=== PATIENT | female | born 1965 | race Caucasian/White ===

== ENCOUNTER 2019-07-05 20:31 | Emergency (ER) | payer BC ==
[2019-07-05 20:44] VITALS: BP 155/89
[2019-07-05] MEDS ORDERED: Amoxicillin/Clavulanate TAB* 875 MG PO ONE (21:27)
--- NOTE | 2019-07-05 21:32 | UC ---
Throat Pain/Nasal Lennox HPI - HPI Summary HPI Summary: 53-year-old female presents with one-week history of nasal congestion, sinus pressure, and sore throat. States over the past 2 nights she has been getting intermittent sharp left ear pain. No measured fever however has felt chilled. States she's had a couple brief episodes of vertigo. Patient reports that approximately 8 or 9 days ago she was seen by her primary care provider for bilateral conjunctivitis and started on Cortisporin eye ointment which cleared the symptoms. Denies ear drainage, dysphagia, cough, chest pain, shortness of breath, abdominal pain, nausea, or vomiting. - History of Current Complaint Chief Complaint: UCEar Stated Complaint: EARACHE Time Seen by Provider: 07/05/19 20:48 Hx Obtained From: Patient Pain Intensity: 7 - Allergies/Home Medications Allergies/Adverse Reactions: Allergies Allergy/AdvReac Type Severity Reaction Status Date / Time No Known Allergies Allergy Verified 07/05/19 20:35 PMH/Surg Hx/FS Hx/Imm Hx Endocrine History: Thyroid Disease Cardiovascular History: Hypertension - Surgical History Surgical History: Yes Surgery Procedure, Year, and Place: [id number] – [place]. TUBAL LIGATION-1995, abd hysterectomy 05/2014 - Family History Known Family History: Positive: Non-Contributory - Social History Occupation: Employed Full-time Lives: With Family Alcohol Use: None Substance Use Type: None Smoking Status (MU): Never Smoked Tobacco - Immunization History Most Recent Influenza Vaccination: NONE Most Recent Tetanus Shot: UNSURE Most Recent Pneumonia Vaccination: NONE Review of Systems All Other Systems Reviewed And Are Negative: Yes Constitutional: Negative: Fever, Chills Eyes: Negative: Drainage, Eye Redness ENT: Positive: Sore Throat, Ear Ache, Nasal Discharge, Sinus Congestion, Sinus Pain/Tenderness Respiratory: Negative: Shortness Of Breath, Cough Cardiovascular: Negative: Palpitations, Chest Pain Gastrointestinal: Negative: Abdominal Pain, Vomiting, Diarrhea, Nausea Genitourinary: Positive: Negative Musculoskeletal: Positive: Negative Neurological/Mental Status: Positive: Negative Is Patient Immunocompromised?: No Physical Exam - Summary Physical Exam Summary: GENERAL APPEARANCE: Alert and cooperative adult female who appears to be in no acute distress. EYES: Conjunctiva clear. No drainage. EARS: Right external auditory canal and tympanic membranes clear. Left external auditory canal with large amount of cerumen and TM was poorly visualized however did appear erythematous. Hearing grossly intact. NOSE: Moderate nasal congestion. No nasal discharge. Maxillary sinus tenderness. THROAT: Pharynx normal. No tonsilar inflammation, swelling, exudate, or lesions. Uvula midline. NECK: Neck supple, non-tender without lymphadenopathy. CARDIAC: Normal S1 and S2. No S3, S4 or murmurs. Rhythm is regular. There is no peripheral edema, cyanosis or pallor. Extremities are warm and well perfused. Capillary refill is less than 2 seconds. Peripheral pulses intact. LUNGS: Clear to auscultation without rales, rhonchi, wheezing or diminished breath sounds. ABDOMEN: Positive bowel sounds. Soft, nondistended, nontender. No guarding or rebound. No masses or hepatosplenomegally. MUSKULOSKELETAL: ROM intact to all extremities. No joint erythema or tenderness. Normal muscular development. Normal gait. SKIN: Skin normal color, texture and turgor with no lesions or eruptions. Triage Information Reviewed: Yes Vital Signs: Initial Vital Signs Temp 96.6 F 07/05/19 20:39 Pulse 72 07/05/19 20:39 Resp 20 07/05/19 20:39 BP 155/89 07/05/19 20:39 Pulse Ox 99 07/05/19 20:39 Vital Signs Reviewed: Yes Throat Pain/Nasal Course/Dx - Course Course Of Treatment: 53-year-old female presents with one-week history of nasal congestion, sinus pressure, and sore throat. States over the past 2 nights she has been getting intermittent sharp left ear pain. No measured fever however has felt chilled. States she's had a couple brief episodes of vertigo. Patient reports that approximately 8 or 9 days ago she was seen by her primary care provider for bilateral conjunctivitis and started on Cortisporin eye ointment which cleared the symptoms. Denies ear drainage, dysphagia, cough, chest pain, shortness of breath, abdominal pain, nausea, or vomiting. Afebrile. Hypertensive otherwise vital signs stable. On exam patient was noted to have a clear right external auditory canal and tympanic membrane, the left external auditory canal had a large amount of cerumen and the TM was poorly visualized however did appear erythematous, moderate nasal congestion, maxillary sinus tenderness, and otherwise unremarkable exam. Discussed with the patient that her symptoms were consistent with an acute sinus infection and likely had a left otitis media as well although could not confirm because the TM was poorly visualized. We'll treat her with a course of Augmentin 875 mg twice a day 10 days as well as recommend symptomatic treatment for the sinus infection. She was given the first dose of antibiotic in the clinic. She is to follow-up with her primary care provider in 3-5 days if symptoms are not improving. Anticipatory guidance and warning symptoms are reviewed with the patient. Verbalizes understanding and agrees with plan of care. - Differential Dx/Diagnosis Differential Diagnosis/HQI/PQRI: Otitis Media, Sinusitis, URI Provider Diagnosis: Acute sinusitis Discharge ED - Sign-Out/Discharge Documenting (check all that apply): Patient Departure All imaging exams completed and their final reports reviewed: No Studies - Discharge Plan Condition: Stable Disposition: HOME Prescriptions: Amoxicillin/Clavulanate TAB* [Augmentin TAB 875*] 875 mg PO BID #20 tab Patient Education Materials: Sinusitis (ED), Earache (ED) Referrals: Melissa Ruby [Primary Care Provider] - 3 Days (If no improvement in symptoms.) Additional Instructions: Your history and exam are consistent with a sinus infection with possible left ear infection. I was not able to fully visualize the left ear drum due to an abundance of ear wax in the ear canal however we will treat you with an antibiotic that should treat for any ear infection as well. Start Augmentin 875 mg 1 tab twice a day for 10 days. Take with food to avoid upset stomach. Be sure to take the entire course even if feeling better. In the first dose of this antibiotic in the clinic Use a saline rinse kit such as Neti Pot or NeilMed at least twice a day to help thin secretions and promote drainage of the sinuses. Use [id number] fluticasone (Flonase) nasal spray 2 sprays each nostril once daily. Take over the counter acetaminophen (Tylenol) or ibuprofen (Advil, Motrin) according to directions as needed for pain or fever. Follow up with your primary care provider in 3-5 days if symptoms persist. Seek immediate medical attention in the emergency room if you have fever greater than 100.5 F despite taking acetaminophen or ibuprofen, have chest pain , difficulty breathing, are unable to swallow, or have any worsening of symptoms. - Billing Disposition and Condition Condition: STABLE Disposition: Home
== END 2019-07-05 21:42 | disposition home or self-care (01) ==
LOC: UCEAST 20:31
DX: J01.90 Acute sinusitis, unspecified (principal); J02.9 Acute pharyngitis, unspecified; H92.02 Otalgia, left ear; I10 Essential (primary) hypertension
CPT/HCPCS: 99212; A9270-GY; G0463

== ENCOUNTER 2019-11-23 11:43 | Inpatient (IN) ==
[2019-11-23] MEDS ORDERED: cefTRIAXone 1 gm/50 mL NS BAG 1 GM/50 ML BAG IV ONE (11:53)
[2019-11-23] MEDS ORDERED: NS 0.9% IV ONE (11:53)
[2019-11-23 12:30] LABS: ABS Lymphocytes 0.4 10^3/ul (1.0-4.8); ABS Monocytes 0.7 10^3/ul (0-0.8); Hematocrit 33 % (35-47); Hemoglobin 11.4 g/dL (12.0-16.0); Lymphocyte % 3.9 %; Mean Corpuscular HGB Conc 35 g/dL (31-36); Mean Corpuscular Hemoglobin 29 pg (27-31); Mean Corpuscular Volume 83 fL (80-97); Platelet Count 161 10^3/uL (150-450); Red Blood Count 3.97 10^6 /uL (3.70-4.87); Red Cell Distribution Width 13 % (10-15); White Blood Count 10.2 10^3/uL (3.5-10.8)
[2019-11-23 12:40] LABS: Activated Partial Thrombo Time 26.4 seconds (26.0-38.0); INR 1.23 (0.82-1.09)
[2019-11-23] MEDS ORDERED: Ondansetron 4 mg VIAL 2 MG/ML 2 ml VIAL IV ONE (12:45)
[2019-11-23] MEDS ORDERED: Azithromycin 500 mg/250 ml NS 500 MG/250 ML BAG IVPB ONE (12:46)
[2019-11-23 12:47] LABS: Albumin 3.9 g/dL (3.2-5.2); Albumin/Globulin Ratio 1.3 (1-3); BUN/Creatinine Ratio 11.9 (8-20); Calcium 9.3 mg/dL (8.6-10.3); EGFR African American 110.6 (>60); EGFR Non-African American 91.4 (>60); Globulin 3.1 g/dL (2-4); Total Bilirubin 1.1 mg/dL (0.2-1.0); Troponin I 0.02 ng/mL (<0.03)
[2019-11-23] MEDS: KCL 20 MEQ/100 ML IVPREMIX 20 MEQ/100 ML BAG IV SCH ×2 (15:33→18:18)
[2019-11-23 18:27] LABS: TSH (Thyroid Stimulating Horm) 0.47 mcIU/mL (0.34-5.60)
[2019-11-23] MEDS: Ondansetron 4 mg VIAL 2 MG/ML 2 ml VIAL IV PRN (19:20)
[2019-11-23] MEDS: NS 0.9% 1000 ml BAG 1,000 ML IV SCH (21:16)
[2019-11-23] MEDS ORDERED: Prochlorperazine 5 mg/ml 2 ml VIAL (10 mg) IV ONE (23:34)
[2019-11-24] MEDS: Ondansetron 4 mg VIAL 2 MG/ML 2 ml VIAL IV PRN ×3 (07:48→22:24)
[2019-11-24] MEDS: NS 0.9% 1000 ml BAG 1,000 ML IV SCH (07:52)
[2019-11-24 08:39] LABS: Urine Appearance Cloudy; Urine Bacteria Absent (Absent); Urine Bilirubin Negative (Negative); Urine Blood 2+ (Negative); Urine Color Amber; Urine Glucose 1+(50 mg/dL) (Negative); Urine Ketones Trace (Negative); Urine Nitrite Negative (Negative); Urine Protein 2+(100 mg/dL) (Negative); Urine Red Blood Cell 3+(>10/hpf) (Absent); Urine Specific Gravity 1.026 (1.010-1.030); Urine Squamous Epithelial Cell Present (Absent); Urine Urobilinogen Negative (Negative); Urine White Blood Cell 3+(>20/hpf) (Absent)
[2019-11-24] MEDS ORDERED: METOPROLOL TARTRATE 50 MG PO SCH (09:00)
[2019-11-24] MEDS ORDERED: cefTRIAXone 1 gm/50 mL NS BAG 1 GM/50 ML BAG IVPB SCH (09:00)
[2019-11-24 09:56] LABS: ABS Lymphocytes 0.6 10^3/ul (1.0-4.8); ABS Monocytes 0.8 10^3/ul (0-0.8); Hematocrit 27 % (35-47); Hemoglobin 9.3 g/dL (12.0-16.0); Lymphocyte % 6.6 %; Mean Corpuscular HGB Conc 35 g/dL (31-36); Mean Corpuscular Hemoglobin 29 pg (27-31); Mean Corpuscular Volume 84 fL (80-97); Mean Platelet Volume 8.9 fL (7.4-10.4); Platelet Count 121 10^3/uL (150-450); Red Cell Distribution Width 14 % (10-15); White Blood Count 8.6 10^3/uL (3.5-10.8)
[2019-11-24 10:17] LABS: BUN/Creatinine Ratio 15.3 (8-20); C Reactive Protein 200.11 mg/L (<8.01); Calcium 8.1 mg/dL (8.6-10.3); EGFR Non-African American 105.8 (>60); Potassium 3.4 mmol/L (3.5-5.0)
[2019-11-24] MEDS ORDERED: KCL 20 MEQ/100 ML IVPREMIX 20 MEQ/100 ML BAG IV ONE (16:12)
[2019-11-24] MEDS ORDERED: Dextrose 50% Syringe 50 ml 25 GM/50 ML SYRINGE IV PUSH PRN (16:38)
[2019-11-24 17:11] LABS: Magnesium 1.7 mg/dL (1.9-2.7)
[2019-11-24] MEDS: Insulin LISPRO 100 units/ml(*) SUBCUT SCH ×2 (17:46→22:30)
[2019-11-24] MEDS ORDERED: Ondansetron 4 mg VIAL 2 MG/ML 2 ml VIAL IV PRN (18:47)
[2019-11-24] MEDS ORDERED: Insulin LISPRO 100 units/ml(*) SUBCUT SCH (21:00)
[2019-11-25] MEDS: NS 0.9% 1000 ml BAG 1,000 ML IV SCH (06:29)
[2019-11-25 06:47] LABS: ABS Monocytes 0.8 10^3/ul (0-0.8); Eosinophil % 0.5 %; Hematocrit 26 % (35-47); Hemoglobin 9.3 g/dL (12.0-16.0); Lymphocyte % 11.5 %; Mean Corpuscular HGB Conc 35 g/dL (31-36); Mean Corpuscular Hemoglobin 30 pg (27-31); Mean Corpuscular Volume 84 fL (80-97); Mean Platelet Volume 10.2 fL (7.4-10.4); Nucleated Red Blood Cells % 0.1; Platelet Count 122 10^3/uL (150-450); Red Blood Count 3.13 10^6 /uL (3.70-4.87); Red Cell Distribution Width 14 % (10-15); White Blood Count 8.6 10^3/uL (3.5-10.8)
[2019-11-25 07:25] LABS: Anion Gap 7 mmol/L (2-11); Blood Urea Nitrogen 10 mg/dL (6-24); C Reactive Protein 166.99 mg/L (<8.01); CO2 Carbon Dioxide 24 mmol/L (22-32); Calcium 8.5 mg/dL (8.6-10.3); Chloride 106 mmol/L (101-111); EGFR Non-African American 128.1 (>60); Glucose 130 mg/dL (70-100); Potassium 3.7 mmol/L (3.5-5.0); Sodium 137 mmol/L (135-145)
[2019-11-25 08:07] LABS: Magnesium 1.8 mg/dL (1.9-2.7)
[2019-11-25] MEDS ORDERED: Magnesium Sulfate 2 gm BAG 2 GM/50 ML BAG IVPB ONE (08:46)
[2019-11-25] MEDS: Insulin LISPRO 100 units/ml(*) SUBCUT SCH ×4 (09:30→22:05)
[2019-11-25] MEDS ORDERED: cefTRIAXone(*) 2 GM ADDV.VIAL 2 GM in NS 0.9% 100 ml BAG 100 ML IV SCH (10:00)
[2019-11-25 12:28] LABS: Ferritin 438.3 ng/mL (11-307)
[2019-11-25 12:30] LABS: Thyroid Peroxidase Antibodies 1.24 IU/mL (<9)
[2019-11-25 12:43] LABS: Thyroglobulin Antibody II 7.5 IU/mL (<4.0)
[2019-11-25 13:21] LABS: % Iron Saturation 14 % (15-55); Iron 32 ug/dL (50-212); Total Iron Binding Capacity 227 mcg/dL (250-450); Transferrin 162 mg/dL (203-362)
[2019-11-26 07:07] LABS: ABS Eosinophils 0.1 10^3/ul (0-0.6); ABS Lymphocytes 1.2 10^3/ul (1.0-4.8); ABS Monocytes 0.6 10^3/ul (0-0.8); Eosinophil % 2.1 %; Hematocrit 26 % (35-47); Hemoglobin 9.1 g/dL (12.0-16.0); Lymphocyte % 20.5 %; Mean Corpuscular HGB Conc 35 g/dL (31-36); Mean Corpuscular Hemoglobin 29 pg (27-31); Mean Corpuscular Volume 83 fL (80-97); Mean Platelet Volume 10.1 fL (7.4-10.4); Platelet Count 146 10^3/uL (150-450); Red Blood Count 3.16 10^6 /uL (3.70-4.87); Red Cell Distribution Width 14 % (10-15); White Blood Count 5.8 10^3/uL (3.5-10.8)
[2019-11-26 07:27] LABS: BUN/Creatinine Ratio 16.3 (8-20); Calcium 8.1 mg/dL (8.6-10.3); EGFR African American 184.5 (>60); EGFR Non-African American 152.4 (>60); Potassium 3.2 mmol/L (3.5-5.0)
[2019-11-26] MEDS: Insulin LISPRO 100 units/ml(*) SUBCUT SCH (07:58)
[2019-11-26] MEDS ORDERED: Amoxicillin 500 mg CAP (*) PO SCH (09:00)
[2019-11-26 11:03] VITALS: BP 124/66
== END 2019-11-26 11:30 | disposition home or self-care (01) | DRG 720 ==
LOC: ED 11:43 → MED 13:21
PROVIDERS: ADMIT Hospitalist; ATTEND Internal Medicine